=== PATIENT | male | born 1975 | race Caucasian/White ===

== ENCOUNTER → 2021-10-17 11:56 | Outpatient (CLI) | payer SELFPAY | PROVIDERS: Visit Provider Nurse Practitioner | DX: U07.1 COVID-19 (principal) | CPT/HCPCS: C9803; U0003; U0005 ==

== ENCOUNTER 2021-12-01 18:41 | Emergency (ER) | payer SELFPAY ==
[2021-12-01 18:59] VITALS: PULSE 95; RESP 18; O2SAT 99; BMI 20.5
[2021-12-01 20:42] VITALS: BP 118/78; PULSE 79; RESP 16; TEMP 36.8; O2SAT 99; BMI 21.1
--- NOTE | 2021-12-01 20:47 | HMH.EDUTC ---
[facility] [place] Disposition Clinical Impression: Lesion of penis Disposition: Home, Self-Care Condition on Discharge: Good Instructions: Mupirocin Additional Instructions: Keep area clean and dry Follow up in the next 5-7 days for your results and further treatment You need to find a Family Doctor and follow up if no improvement or any worsening of symptoms Return if needed Straight to ER if any life threatening symptoms Prescriptions: Mupirocin [Bactroban 2% Ointment 22gm tube] 1 applicatio TP TID 10 Days #22 gm [facility]: [id number] Referrals: Provider,Referral, [Primary Care Provider] - Medical Decision Making - Josiah Inquiry Pt receiving controlled substance: No Josiah was queried for this patient: No Vital Signs: 12/01/21 18:59 12/01/21 20:42 12/01/21 21:30 Temperature 98.3 F 98.3 F Temperature Source Oral Pulse Rate 79 Pulse Rate [Left Radial] 95 H 79 Respiratory Rate 18 16 16 Blood Pressure 118/78 Blood Pressure [Right Arm] 118/78 Blood Pressure Mean [Right Arm] 91 02 Sat by Pulse Oximetry 99 99 Orders (Tests/Meds): ED MEDICATIONS Discontinued Medications Generic Name Dose Route Start Last Admin Trade Name Freq PRN Reason Stop Dose Admin Penicillin G Benzathine 2,400,000 unit 12/01/21 20:58 12/01/21 21:21 Penicillin G Benzathine 1,200,000 Units/2ml Syringe IM 12/01/21 20:59 2,400,000 unit ONCE ONE Administration ORDERS Category Date Time Status Viral Culture, General Stat Micro 12/01/21 20:38 Received Medical Decision Narrative: Medication and treatment discussed with pharmacy [facility] [place] HPI - General Stated complaint: knot on leg Time Seen by Provider: 12/01/21 20:47 Mode of Arrival: Ambulatory Source of Information: Patient Limitations: No Limitations Description of Symptoms (Recalled from Triage Doc. by RN): pt c/o a lesion on the shaft of his penis about the size of a quarter. x2 weeks HEENT Symptoms (Recalled from RN notes): No Resp Symptoms (Recalled from RN notes): No Skin Symptoms (Recalled from RN notes): No MS Symptoms (Recalled from RN notes): No Functional Status (Recalled from RN notes): wnl - History of Present Illness Provider Complaint: Patient states that he has had a small painless lesion on the left side of his Penis for about 2 weeks that is deenaing States that he was worried that he may have skin infection or something so he came in - Related Data Previous Rx's Medication Instructions Recorded Sulfamethoxazole/Trimethoprim 1 each PO BID #14 tab 05/09/18 [Bactrim DS tablet] cephALEXin [Keflex 500mg Cap] 500 mg PO TID #30 cap 05/09/18 Mupirocin [Bactroban 2% Ointment 1 applicatio TP TID 10 Days #22 gm 12/01/21 22gm tube] Allergies Allergy/AdvReac Type Severity Reaction Status Date / Time No Known Allergies Allergy Unverified 08/30/17 15:30 - Worker's Comp Is this a Worker's Comp case?: No [facility] History - Hepatitis A Screen Drug use history?: No High risk sexual behaviors?: No History of sexually transmitted infection?: No Currently employed?: No Childcare worker?: No Do you have indoor plumbing?: Yes Do you have electricity?: Yes Attestation statement:: This patient has been screened for Hepatitis A risk factors. I have reviewed the patient's past medical history: Yes - Social History Smoking Status: Current every day smoker Alcohol Intake: current ROS Obtained: Yes All systems reviewed & no additional complaints, Yes Systems reviewed as appropriate & no additional complaints - Constitutional Constitutional: Reports system reviewed and no additional complaints, except as docu, Denies body ache, Denies chills, Denies fever(s) - ENT Ears, Nose, Mouth, and Throat: Reports system reviewed and no additional complaints, except as docu - Cardiovascular Cardiovascular: Reports system reviewed and no additional complaints, except as docu - Respiratory
[2021-12-01 21:30] VITALS: BP 118/78; PULSE 79; RESP 16; TEMP 36.8
== END 2021-12-01 21:31 | disposition home or self-care (01) ==
LOC: ER 19:11 → UTC 19:11 → ER 19:11 → UTC 19:17
PROVIDERS: Emergency Provider Nurse Practitioner
DX: N48.9 Disorder of penis, unspecified (principal); F17.210 Nicotine dependence, cigarettes, uncomplicated
CPT/HCPCS: 87252; 96372; 99212; G0463; J0561

== ENCOUNTER 2023-08-11 10:12 | Emergency (ER) | payer BC, SELFPAY ==
[2023-08-11 10:30] VITALS: BP 117/89; PULSE 68; RESP 20; TEMP 37.1; O2SAT 100
[2023-08-11 11:09] VITALS: BP 117/89; PULSE 68; RESP 20; TEMP 37.1; O2SAT 100
--- NOTE | 2023-08-11 11:10 | EXP.UTC ---
Discharge Plan Disposition Patient Disposition: Home, Self-Care Condition: Good Prescriptions Prescriptions: New benzonatate 100 mg capsule 100 mg PO TID PRN (Reason: cough) Qty: 30 0RF guaifenesin [Mucinex] 600 mg tablet extended release 12hr 1,200 mg PO BID PRN (Reason: cough) Qty: 20 0RF azithromycin [Zithromax Z-Ney] 250 mg tablet See Rx Instructions .ROUTE .COMPLEX 5 Days Qty: 6 0RF Rx Instructions: For 250 mg dose pack: take 500 mg today (day 1), then 250 mg for 4 days (days 2-5) prednisone [prednisone] 20 mg tablet 20 mg PO BID 5 Days Qty: 10 0RF Referrals Follow up/Referrals: Provider,Referral, MD [Primary Care Provider] - See instructions Activity Restrictions/Add. Instructions Additional Instructions/Restrictions: Start antibiotic today. Be sure to complete entire prescription even if feeling better Monitor temp. Tylenol every 4 hours as needed and / or ibuprofen every 6 hours as needed ( As long as your primary care physician has told you that it ok to take both. For fever/aches/pains ER if no less than 101 despite Tylenol or Motrin Humidifier/vaporizer or hot steamy shower Mucinex during the day for your cough and cough suppressant only at night. Be sure to drink lots of water. *Tessalon Perles will not cause drowsiness but use at bedtime to help stop cough so that you may get some rest. *Start steroid today. Helps with inflammation therefore, cough and wheezing. Follow directions on the package. Reviewed side effects. Patient reports taking them before. Follow up IMMEDIATELY for new or worsening of symptoms OR no noticeable improvement over the next 48-72 hours. 911 immediately for any life threatening symptoms such as chest pain or difficulty breathing Clinical Impressions Clinical Impression: Bronchitis Sinusitis Qualifiers: Sinusitis location: unspecified location Chronicity: unspecified Qualified Code(s): J32.9 - Chronic sinusitis, unspecified Instructions Patient Instructions: Acute Bronchitis, DI for Sinusitis Discharge ED Provider: Urszula Menendez [facility] General Stated complaint: cough, fever, congestion, soa, vomiting Mode of Arrival: Ambulatory Source of Information: Patient Limitations: No Limitations Time Seen by Provider: 08/11/23 11:10 Description of Symptoms (Recalled from Triage Doc. by RN): PATIENT C/O CHEST CONGESTION, HEADACHE AND FEVER X 2 DAYS HEENT Symptoms (Recalled from RN notes): No Resp Symptoms (Recalled from RN notes): Yes Skin Symptoms (Recalled from RN notes): No MS Symptoms (Recalled from RN notes): No Functional Status (Recalled from RN notes): WNL History of Present Illness Provider Complaint: Patient states he started getting sick right after Thanksgiving with sinus congestion and pressure, headache and feels like it has moved into his chest causing him to have cough, chest congestion and at times he will cough up some mucous States that over the last couple of days seemed to be getting worse so he came in Related Data Previous Rx's Medication Instructions Recorded azithromycin 250 mg tablet See Rx Instructions PO .COMPLEX 5 08/11/23 (Zithromax Z-Ney) days #6 tabs benzonatate 100 mg capsule 100 mg PO TID PRN cough #30 caps 08/11/23 guaifenesin 600 mg tablet, 1,200 mg PO BID PRN cough #20 tabs 08/11/23 extended release 12 hr (Mucinex) prednisone 20 mg tablet 20 mg PO BID 5 days #10 tabs 08/11/23 Allergies Allergy/AdvReac Type Severity Reaction Status Date / Time No Known Allergies Allergy Unverified 08/30/17 15:30 Worker's Comp Is this a Worker's Comp case?: No [facility] Disclaimer: The information contained in this section may have been updated after the patient was seen, as this information can be updated by other users. Medical History (Updated 08/11/23 @ 11:16 by Urszula Menendez APRN) No significant past medical history Social History Smoking
== END 2023-08-11 11:20 | disposition home or self-care (01) ==
PROVIDERS: Emergency Provider Nurse Practitioner
DX: J01.90 Acute sinusitis, unspecified (principal); J20.9 Acute bronchitis, unspecified; R06.02 Shortness of breath; R50.9 Fever, unspecified; R11.2 Nausea with vomiting, unspecified; R05.9 Cough, unspecified; R09.81 Nasal congestion; R51.9 Headache, unspecified; F17.210 Nicotine dependence, cigarettes, uncomplicated
CPT/HCPCS: 99212; 99214; G0463